=== PATIENT | male | born 1985 | race Caucasian/White ===

== ENCOUNTER → 2023-10-19 | Outpatient (REF) | payer OTHER | LOC: US 11:43 | PROVIDERS: ATTEND Internal Medicine | DX: E04.1 Nontoxic single thyroid nodule (principal) | CPT/HCPCS: 76536 ==

== ENCOUNTER → 2023-11-06 | Outpatient (REF) | payer OTHER | LOC: US 12:09 | PROVIDERS: ATTEND Internal Medicine | DX: E04.1 Nontoxic single thyroid nodule (principal) | CPT/HCPCS: 10005; 88112; 88172; 88173; 88305 ==